=== PATIENT | female | born 1960 | race Caucasian/White ===

== ENCOUNTER → 2018-11-02 | Outpatient (CLI) | payer OTHER | END | disposition home or self-care (01) | LOC: LAB SHORT 16:43 → PLD 16:43 | DX: D48.5 Neoplasm of uncertain behavior of skin (principal) | CPT/HCPCS: 88305 ==

== ENCOUNTER 2022-09-05 11:00 | Day surgery (SDC) | payer OTHER ==
[~2022-09-05] VITALS: Ht 157.5 cm; Wt 69.9 kg
[2022-09-05] MEDS ORDERED: OMEGA-3 + VITA200 ML (11:11)
[2022-09-05] MEDS ORDERED: ATOR10 (11:12)
[2022-09-05] MEDS ORDERED: Lisinopril-Hct1 EAC4 (11:12)
[2022-09-05] MEDS ORDERED: FLUO10 (11:12)
[2022-09-05] MEDS ORDERED: LEVOTHYROXINE13 MCG (11:12)
[2022-09-05] MEDS ORDERED: CENTRUM SILVER1 EAC2 (11:12)
[2022-09-05 13:22] VITALS: BP 136/83
== END 2022-09-05 13:29 | disposition home or self-care (01) ==
LOC: ORSCSDS 11:00
PROVIDERS: Student in an Organized Health Care Education/Training Program
PROC: 0DBK8ZX Excision of Ascending Colon, Via Natural or Artificial Opening Endoscopic, Diagnostic (ICD-10-PCS; principal; 2022-09-05 12:15)
PROC: 0DBL8ZX Excision of Transverse Colon, Via Natural or Artificial Opening Endoscopic, Diagnostic (ICD-10-PCS; principal; 2022-09-05 12:15)
PROC: 0DBM8ZX Excision of Descending Colon, Via Natural or Artificial Opening Endoscopic, Diagnostic (ICD-10-PCS; principal; 2022-09-05 12:15)
PROC: 0DBN8ZX Excision of Sigmoid Colon, Via Natural or Artificial Opening Endoscopic, Diagnostic (ICD-10-PCS; principal; 2022-09-05 12:15)
PROC: 0DBH8ZX Excision of Cecum, Via Natural or Artificial Opening Endoscopic, Diagnostic (ICD-10-PCS; principal; 2022-09-05 12:15)
DX: Z12.11 Encounter for screening for malignant neoplasm of colon (principal); D12.0 Benign neoplasm of cecum; D12.2 Benign neoplasm of ascending colon; K63.5 Polyp of colon; K57.30 Diverticulosis of large intestine without perforation or abscess without bleeding; Z87.891 Personal history of nicotine dependence; I10 Essential (primary) hypertension; Z79.899 Other long term (current) drug therapy
CPT/HCPCS: 88305; J2405; J2704; J7120